=== PATIENT | male | born 1960 | race Caucasian/White ===

== ENCOUNTER 2017-11-04 15:59 | Emergency (ER) | payer MEDICAID ==
[~2017-11-04] VITALS: Ht 170.2 cm; Wt 95.1 kg
[~2017-11-04 15:59] MED LIST: GABA-827 PO
[2017-11-04] MEDS ORDERED: ASPIRIN 81 MG TABLET CHEW PO ONE (16:30)
[2017-11-04] MEDS ORDERED: SODIUM CHLORIDE FLUSH 10ML SYR IVF ONE ×2 (16:30→17:00)
[2017-11-04] MEDS ORDERED: ALBUTEROL/IPRATROPIUM 2.5MG/0.5MG, 3 ML NPPB SCH (17:00)
[2017-11-04 17:10] LABS: BASOPHILS # (AUTO) 0.04 x10^3/uL (0-0.1); BASOPHILS % (AUTO) 0 % (0-1); EOSINOPHILS # (AUTO) 0.18 x10^3/uL (0-0.4); EOSINOPHILS % (AUTO) 2 % (1-7); LYMPHOCYTES # (AUTO) 1.84 x10^3/uL (1-3.4); LYMPHOCYTES % (AUTO) 21 % (22-44); MD NO; MEAN CORPUSCULAR HEMOGLOBIN 29.6 pg (27.5-34.5); MEAN CORPUSCULAR HGB CONC 33.7 g/dL (33.2-36.2); MEAN CORPUSCULAR VOLUME 87.9 fL (81-97); MEAN PLATELET VOLUME 9.1 fL (7.4-10.4); MONOCYTES # (AUTO) 0.65 x10^3/uL (0.2-0.8); MONOCYTES % (AUTO) 7 % (2-9); NEUTROPHILS # (AUTO) 6.04 x10^3/uL (1.8-6.8); NEUTROPHILS % (AUTO) 69 % (42-75); PLATELET COUNT 235 x10^3/uL (130-400); RED BLOOD COUNT 5.75 x10^6/uL (4.38-5.82); RED CELL DISTRIBUTION WIDTH 14.6 % (9.4-14.8)
[2017-11-04 17:19] LABS: ALBUMIN 3.5 g/dL (3.4-5.0); ANION GAP 7 mmol/L (5-15); CALCIUM 8.1 mg/dL (8.5-10.1); CHLORIDE 110 mmol/L (98-107)
[2017-11-04 17:24] LABS: ALKALINE PHOSPHATASE 85 U/L (45-117); BILIRUBIN,TOTAL 0.8 mg/dL (0.2-1.0); CREATININE 0.89 mg/dL (0.7-1.3); TOTAL PROTEIN 7.2 g/dL (6.4-8.2); TROPONIN I 0.093 ng/mL (0.000-0.045)
[2017-11-04 17:25] LABS: ALANINE AMINOTRANSFERASE 59 U/L (12-78)
[2017-11-04] MEDS ORDERED: hydrALAzine 20 MG/ML, 1ML IV ONE (18:00)
[2017-11-04] MEDS ORDERED: hydrALAzine 20 MG/ML, 1ML ONE (19:13)
[2017-11-04 19:50] LABS: AMPHETAMINE SCREEN, URINE Positive (Negative); BARBITURATE SCREEN, URINE Negative (Negative); BENZODIAZEPINE SCREEN, URINE Negative (Negative); CANNABINOID SCREEN, URINE Negative (Negative); COCAINE SCREEN, URINE Negative (Negative); METHADONE SCREEN, URINE Negative (Negative); OPIATE SCREEN, URINE Negative (Negative)
[2017-11-04] MEDS ORDERED: SODIUM CHLORIDE 0.9% 1,000 ML IV SCH (20:19)
[2017-11-04] MEDS ORDERED: ACETAMINOPHEN 325 MG TABLET PO PRN (20:30)
[2017-11-04] MEDS ORDERED: LISINOPRIL 10 MG TABLET PO SCH (20:30)
[2017-11-04] MEDS ORDERED: POLYETHYLENE GLYCOL 17 GM PACKET PO PRN (20:30)
[2017-11-04] MEDS ORDERED: BISACODYL 10 MG SUPP PR PRN (20:30)
[2017-11-04] MEDS ORDERED: hydrALAzine 20 MG/ML, 1ML IVPush PRN (20:30)
[2017-11-04] MEDS ORDERED: OXYcodone IR 5MG TABLET PO PRN (20:30)
[2017-11-04] MEDS ORDERED: ONDANSETRON 2MG/ML, 2ML IVPush PRN (20:30)
[2017-11-04] MEDS ORDERED: NITROGLYCERIN 0.4 MG BOTTLE (25 TABS) SL PRN (20:30)
[2017-11-04] MEDS ORDERED: morphine SULFATE 10 MG/ML, 1ML IVPush PRN (20:30)
[2017-11-04] MEDS ORDERED: ENOXAPARIN 40 MG/0.4 ML SQ SCH (20:30)
[2017-11-04] MEDS ORDERED: ENALAPRILAT 1.25 MG/ML, 2ML IVPush PRN (20:30)
[2017-11-04] MEDS ORDERED: FUROSEMIDE 20 MG/2 ML IV ONE (20:30)
[2017-11-04 20:58] VITALS: BP 138/88
[2017-11-04 21:05] LABS: FREE T4 (FREE THYROXINE) 1.19 ng/dL (0.76-1.46); THYROID STIMULATING HORMONE 1.48 mIU/L (0.358-3.740)
[2017-11-04 21:07] LABS: HEMOGLOBIN A1C 6.3 % (4.2-6.3)
[2017-11-05] MEDS ORDERED: SENNA/DOCUSATE TABLET PO SCH (09:00)
== END 2017-11-04 21:18 | disposition left against medical advice (07) ==
LOC: ED 18:26 → EDIP 20:19 → UNDOADMIN 20:19 → ED 21:18
DX: R07.2 Precordial pain (principal); I10 Essential (primary) hypertension; G43.909 Migraine, unspecified, not intractable, without status migrainosus; J43.9 Emphysema, unspecified; Z72.9 Problem related to lifestyle, unspecified; Z87.891 Personal history of nicotine dependence; E27.9 Disorder of adrenal gland, unspecified; E78.5 Hyperlipidemia, unspecified; R79.89 Other specified abnormal findings of blood chemistry; Z79.899 Other long term (current) drug therapy
CPT/HCPCS: 36415; 36600; 71046; 80053; 80307; 82803; 83036; 83735; 83880; 84439; 84443; 84484; 85025; 85379; 87040; 93005; 96374; 99291; J0360

== ENCOUNTER 2017-12-25 15:00 | Emergency (ER) | payer MEDICAID ==
[~2017-12-25] VITALS: Ht 172.7 cm; Wt 95.5 kg
[2017-12-25] MEDS ORDERED: SODIUM CHLORIDE FLUSH 10ML SYR IVF ONE (15:30)
[2017-12-25 15:35] LABS: BASOPHILS # (AUTO) 0.03 x10^3/uL (0-0.1); BASOPHILS % (AUTO) 0 % (0-1); EOSINOPHILS # (AUTO) 0.24 x10^3/uL (0-0.4); EOSINOPHILS % (AUTO) 2 % (1-7); LYMPHOCYTES # (AUTO) 2.31 x10^3/uL (1-3.4); LYMPHOCYTES % (AUTO) 20 % (22-44); MD NO; MEAN CORPUSCULAR HEMOGLOBIN 29.3 pg (27.5-34.5); MEAN CORPUSCULAR HGB CONC 33.1 g/dL (33.2-36.2); MEAN CORPUSCULAR VOLUME 88.6 fL (81-97); MEAN PLATELET VOLUME 9.1 fL (7.4-10.4); MONOCYTES # (AUTO) 0.63 x10^3/uL (0.2-0.8); MONOCYTES % (AUTO) 6 % (2-9); NEUTROPHILS # (AUTO) 8.16 x10^3/uL (1.8-6.8); NEUTROPHILS % (AUTO) 72 % (42-75); PLATELET COUNT 254 x10^3/uL (130-400); RED BLOOD COUNT 6.13 x10^6/uL (4.38-5.82); RED CELL DISTRIBUTION WIDTH 14.5 % (9.4-14.8)
[2017-12-25 15:49] LABS: ALANINE AMINOTRANSFERASE 67 U/L (12-78); ALBUMIN 3.4 g/dL (3.4-5.0); ANION GAP 8 mmol/L (5-15); CALCIUM 8.5 mg/dL (8.5-10.1); CHLORIDE 111 mmol/L (98-107); CREATININE 1.17 mg/dL (0.7-1.3)
[2017-12-25 15:53] LABS: ALKALINE PHOSPHATASE 83 U/L (45-117); BILIRUBIN,TOTAL 0.6 mg/dL (0.2-1.0); TOTAL PROTEIN 7.5 g/dL (6.4-8.2)
[2017-12-25 16:10] LABS: PROTHROMBIN TIME 9.9 Seconds (9.6-11.5)
[2017-12-25 16:11] LABS: INTERNATIONAL NORMALIZED RATIO 0.96 (0.93-1.1)
[2017-12-25] MEDS ORDERED: LIDOCAINE-MPF 1%, 5ML ONE (16:11)
[2017-12-25 16:31] LABS: MICROSCOPIC AUTO
[2017-12-25 16:34] LABS: CULTURE INDICATED? YES
[2017-12-25 17:18] VITALS: BP 118/90
== END 2017-12-25 18:16 | disposition home or self-care (01) ==
LOC: ED 16:03
DX: R06.00 Dyspnea, unspecified (principal); R09.02 Hypoxemia; R74.0 Nonspecific elevation of levels of transaminase and lactic acid dehydrogenase [LDH]; I10 Essential (primary) hypertension; G43.909 Migraine, unspecified, not intractable, without status migrainosus; Z87.891 Personal history of nicotine dependence
CPT/HCPCS: 36415; 49083; 71045; 80053; 81001; 83690; 83880; 85025; 85610; 85730; 87086; 93005; 99285

== ENCOUNTER 2018-02-21 08:00 | Emergency (ER) | payer MEDICAID ==
[~2018-02-21] VITALS: Ht 170.2 cm; Wt 95.3 kg
[2018-02-21] MEDS ORDERED: SODIUM CHLORIDE FLUSH 10ML SYR IVF ONE (08:30)
[2018-02-21] MEDS ORDERED: ALBUTEROL/IPRATROPIUM 2.5MG/0.5MG, 3 ML NPPB ONE (08:30)
[2018-02-21] MEDS ORDERED: ASPIRIN 81 MG TABLET CHEW PO ONE (08:30)
[2018-02-21 08:42] LABS: BASOPHILS # (AUTO) 0.07 x10^3/uL (0-0.1); BASOPHILS % (AUTO) 1 % (0-1); EOSINOPHILS # (AUTO) 0.23 x10^3/uL (0-0.4); EOSINOPHILS % (AUTO) 3 % (1-7); LYMPHOCYTES # (AUTO) 2.44 x10^3/uL (1-3.4); LYMPHOCYTES % (AUTO) 27 % (22-44); MD NO; MEAN CORPUSCULAR HEMOGLOBIN 30.2 pg (27.5-34.5); MEAN CORPUSCULAR HGB CONC 33.8 g/dL (33.2-36.2); MEAN CORPUSCULAR VOLUME 89.3 fL (81-97); MEAN PLATELET VOLUME 9.1 fL (7.4-10.4); MONOCYTES # (AUTO) 0.62 x10^3/uL (0.2-0.8); MONOCYTES % (AUTO) 7 % (2-9); NEUTROPHILS % (AUTO) 63 % (42-75); PLATELET COUNT 233 x10^3/uL (130-400); RED BLOOD COUNT 6.05 x10^6/uL (4.38-5.82); RED CELL DISTRIBUTION WIDTH 14.3 % (9.4-14.8)
[2018-02-21] MEDS ORDERED: ASPIRIN 81 MG TABLET CHEW ONE (08:48)
[2018-02-21 08:56] LABS: ALBUMIN 3.8 g/dL (3.4-5.0); ANION GAP 4 mmol/L (5-15); CALCIUM 8.6 mg/dL (8.5-10.1); CHLORIDE 107 mmol/L (98-107)
[2018-02-21] MEDS ORDERED: ALBUTEROL/IPRATROPIUM 2.5MG/0.5MG, 3 ML ONE (08:59)
[2018-02-21 09:01] LABS: ALANINE AMINOTRANSFERASE 72 U/L (12-78); ALKALINE PHOSPHATASE 68 U/L (45-117); BILIRUBIN,TOTAL 0.6 mg/dL (0.2-1.0); CREATININE 1.09 mg/dL (0.7-1.3); TOTAL PROTEIN 7.7 g/dL (6.4-8.2); TROPONIN I 0.053 ng/mL (0.000-0.045)
[2018-02-21] MEDS ORDERED: METOPROLOL 1 MG/ML, 5ML IVPush PRN (09:30)
[2018-02-21] MEDS ORDERED: METOPROLOL 1 MG/ML, 5ML ONE (09:31)
[2018-02-21] MEDS ORDERED: POTA2TAB8 PO (09:37)
[2018-02-21] MEDS ORDERED: LOSA1TAB19 PO (09:38)
[2018-02-21] MEDS ORDERED: METO25TA35 PO (09:38)
[2018-02-21] MEDS ORDERED: ASPI1TAB58 PO (09:39)
[2018-02-21] MEDS ORDERED: IPRA3AMP INH (09:39)
[2018-02-21 10:57] VITALS: BP 126/91
== END 2018-02-21 11:09 | disposition left against medical advice (07) ==
LOC: ED 09:48 → EDIP 09:57 → UNDOADMOB 09:57 → ED 11:09 → 5SO 11:09 → EDIP 11:09 → UNDODISOB 12:15
DX: R07.2 Precordial pain (principal); J44.9 Chronic obstructive pulmonary disease, unspecified; I10 Essential (primary) hypertension; G43.909 Migraine, unspecified, not intractable, without status migrainosus; R06.00 Dyspnea, unspecified; Z87.891 Personal history of nicotine dependence
CPT/HCPCS: 36415; 71045; 80053; 83880; 84484; 85025; 93005; 94640; 96374; 99285; G0378; J7512; J7620

== ENCOUNTER 2018-03-06 15:26 | Inpatient (IN) | payer MEDICAID ==
[~2018-03-06] VITALS: Ht 172.7 cm; Wt 94.6 kg
[~2018-03-06 15:26] MED LIST changes: +ASPI1TAB58 PO; +IPRA3AMP INH; +LOSA1TAB19 PO; +METO25TA35 PO; +POTA2TAB8 PO
[2018-03-06] MEDS ORDERED: [UNRECOGNIZED DRUG - OTHER] INH (16:05)
[2018-03-06 16:10] LABS: BASOPHILS # (AUTO) 0.07 x10^3/uL (0-0.1); BASOPHILS % (AUTO) 1 % (0-1); EOSINOPHILS # (AUTO) 0.21 x10^3/uL (0-0.4); EOSINOPHILS % (AUTO) 2 % (1-7); LYMPHOCYTES # (AUTO) 2.38 x10^3/uL (1-3.4); LYMPHOCYTES % (AUTO) 23 % (22-44); MD NO; MEAN CORPUSCULAR HEMOGLOBIN 29.3 pg (27.5-34.5); MEAN CORPUSCULAR HGB CONC 33.1 g/dL (33.2-36.2); MEAN CORPUSCULAR VOLUME 88.8 fL (81-97); MEAN PLATELET VOLUME 9.1 fL (7.4-10.4); MONOCYTES # (AUTO) 0.71 x10^3/uL (0.2-0.8); MONOCYTES % (AUTO) 7 % (2-9); NEUTROPHILS # (AUTO) 6.91 x10^3/uL (1.8-6.8); NEUTROPHILS % (AUTO) 67 % (42-75); PLATELET COUNT 232 x10^3/uL (130-400); RED BLOOD COUNT 5.94 x10^6/uL (4.38-5.82); RED CELL DISTRIBUTION WIDTH 14.5 % (9.4-14.8)
[2018-03-06 16:20] LABS: ALBUMIN 3.6 g/dL (3.4-5.0); ANION GAP 5 mmol/L (5-15); CALCIUM 8.5 mg/dL (8.5-10.1); CHLORIDE 113 mmol/L (98-107); CREATININE 1.07 mg/dL (0.7-1.3)
[2018-03-06 16:24] LABS: TROPONIN I 0.034 ng/mL (0.000-0.045)
[2018-03-06] MEDS ORDERED: ASPIRIN 81 MG TABLET CHEW ONE (17:14)
[2018-03-06] MEDS: SODIUM CHLORIDE 0.9% 1,000 ML IV SCH ×2 (17:28→19:52)
[2018-03-06] MEDS ORDERED: ASPIRIN 81 MG TABLET CHEW PO ONE (17:30)
[2018-03-06] MEDS ORDERED: ENOXAPARIN 40 MG/0.4 ML SQ SCH (18:00)
[2018-03-06] MEDS ORDERED: AZITHROMYCIN 500 MG in SODIUM CHLORIDE 0.9% 250 ML IV SCH (18:00)
[2018-03-06] MEDS ORDERED: [UNRECOGNIZED DRUG - REMARK] MC SCH (18:00)
[2018-03-06] MEDS ORDERED: ONDANSETRON 2MG/ML, 2ML IVPush PRN (18:00)
[2018-03-06] MEDS ORDERED: CEFTRIAXONE PMX 2GM/50ML 50 ML IV SCH (18:00)
[2018-03-06] MEDS ORDERED: HYDROcodone/APAP 5/325 TABLET PO PRN (18:00)
[2018-03-06] MEDS ORDERED: morphine SULFATE 10 MG/ML, 1ML IVPush PRN (18:00)
[2018-03-06] MEDS ORDERED: OMNIPAQUE 350 MG/ML, 100ML BOTTLE ONE (18:06)
[2018-03-06 18:20] LABS: FREE T4 (FREE THYROXINE) 1.25 ng/dL (0.76-1.46); THYROID STIMULATING HORMONE 1.77 mIU/L (0.358-3.740)
[2018-03-06 18:35] VITALS: BP 131/92
[2018-03-06 20:00] VITALS: BP 121/80
[2018-03-06] MEDS: methylPREDNISolone SOD SUCC 40 MG/ML IVPush SCH (20:09)
[2018-03-06] MEDS ORDERED: ALBUTEROL/IPRATROPIUM 2.5MG/0.5MG, 3 ML NPPB PRN (20:30)
[2018-03-06] MEDS ORDERED: METOPROLOL TARTRATE 50 MG TABLET PO SCH (21:00)
[2018-03-06 21:22] LABS: AMPHETAMINE SCREEN, URINE Positive (Negative); BARBITURATE SCREEN, URINE Negative (Negative); BENZODIAZEPINE SCREEN, URINE Negative (Negative); CANNABINOID SCREEN, URINE Negative (Negative); COCAINE SCREEN, URINE Negative (Negative); METHADONE SCREEN, URINE Negative (Negative); OPIATE SCREEN, URINE Negative (Negative)
[2018-03-06 22:45] LABS: TROPONIN I 0.035 ng/mL (0.000-0.045)
[2018-03-07 02:12] VITALS: BP 120/83
[2018-03-07] MEDS: methylPREDNISolone SOD SUCC 40 MG/ML IVPush SCH (02:13)
[2018-03-07 04:15] LABS: CHOLESTEROL, TOTAL 154 mg/dL (140-239); TRIGLYCERIDES 122 mg/dL (50-200); VLDL CHOLESTEROL 24 mg/dL (0-25)
[2018-03-07 04:18] LABS: CHOL/HDL RATIO 3.9; HDL CHOL % 25 % (26-37); HDL CHOLESTEROL (DIRECT) 39 mg/dL (40-60); LDL CHOLESTEROL,CALCULATED 91 mg/dL (54-169); LDL/HDL RATIO 2.3 (0.5-3.0); TROPONIN I 0.027 ng/mL (0.000-0.045)
[2018-03-07] MEDS ORDERED: METO-282 PO (05:06)
[2018-03-07 07:04] VITALS: BP 125/83
[2018-03-07] MEDS ORDERED: PANTOPROZOLE 40MG TABLET PO SCH (07:30)
== END 2018-03-07 08:40 | disposition left against medical advice (07) | DRG 192 ==
LOC: ED 15:45 → SUATTDRO 17:08 → EDIP 17:44 → 5SO 18:27
PROVIDERS: ADMIT Internal Medicine; ATTEND Internal Medicine
DX: J44.0 Chronic obstructive pulmonary disease with (acute) lower respiratory infection (principal); J44.1 Chronic obstructive pulmonary disease with (acute) exacerbation; J20.9 Acute bronchitis, unspecified; E78.5 Hyperlipidemia, unspecified; I10 Essential (primary) hypertension; Z79.82 Long term (current) use of aspirin; Z80.42 Family history of malignant neoplasm of prostate; Z80.8 Family history of malignant neoplasm of other organs or systems; Z87.891 Personal history of nicotine dependence; Z91.14 Patient's other noncompliance with medication regimen; R07.89 Other chest pain; Z91.030 Bee allergy status; Z91.018 Allergy to other foods; Z88.8 Allergy status to other drugs, medicaments and biological substances
CPT/HCPCS: 36415; 71045; 71275; 80048; 80061; 80307; 82040; 84439; 84443; 84484; 85025; 93005; 93306; 99285; J0456; J0696; J1650; Q9967; J2920; J7030; J7050

== ENCOUNTER 2018-04-11 16:56 | Emergency (ER) | payer MEDICAID ==
[~2018-04-11] VITALS: Ht 170.2 cm; Wt 96.9 kg
[~2018-04-11 16:56] MED LIST changes: -IPRA3AMP INH; +IPRA3AMP30 INH; +METO-282 PO; +[UNRECOGNIZED DRUG - OTHER] INH
[2018-04-11] MEDS ORDERED: MAALOX/HYOSCYAMINE/LIDOCAINE 45 ML BTL PO ONE (17:30)
[2018-04-11] MEDS ORDERED: ASPIRIN 81 MG TABLET CHEW PO ONE (17:30)
[2018-04-11] MEDS ORDERED: SODIUM CHLORIDE FLUSH 10ML SYR IVF ONE (17:30)
[2018-04-11] MEDS ORDERED: MAALOX/HYOSCYAMINE/LIDOCAINE 45 ML BTL ONE (17:32)
[2018-04-11] MEDS ORDERED: ASPIRIN 81 MG TABLET CHEW ONE (17:32)
[2018-04-11 17:37] LABS: BASOPHILS # (AUTO) 0.04 x10^3/uL (0-0.1); BASOPHILS % (AUTO) 0 % (0-1); EOSINOPHILS # (AUTO) 0.26 x10^3/uL (0-0.4); EOSINOPHILS % (AUTO) 3 % (1-7); LYMPHOCYTES # (AUTO) 2.37 x10^3/uL (1-3.4); LYMPHOCYTES % (AUTO) 27 % (22-44); MD NO; MEAN CORPUSCULAR HEMOGLOBIN 30.6 pg (27.5-34.5); MEAN CORPUSCULAR HGB CONC 33.8 g/dL (33.2-36.2); MEAN CORPUSCULAR VOLUME 90.3 fL (81-97); MEAN PLATELET VOLUME 9.2 fL (7.4-10.4); MONOCYTES # (AUTO) 0.68 x10^3/uL (0.2-0.8); MONOCYTES % (AUTO) 8 % (2-9); NEUTROPHILS # (AUTO) 5.36 x10^3/uL (1.8-6.8); NEUTROPHILS % (AUTO) 62 % (42-75); PLATELET COUNT 228 x10^3/uL (130-400); RED BLOOD COUNT 5.73 x10^6/uL (4.38-5.82); RED CELL DISTRIBUTION WIDTH 14.1 % (9.4-14.8)
[2018-04-11 17:43] LABS: ALANINE AMINOTRANSFERASE 55 U/L (12-78); ALBUMIN 3.5 g/dL (3.4-5.0); ANION GAP 8 mmol/L (5-15); CALCIUM 7.9 mg/dL (8.5-10.1); CHLORIDE 111 mmol/L (98-107); CREATININE 0.94 mg/dL (0.7-1.3)
[2018-04-11 17:48] LABS: ALKALINE PHOSPHATASE 71 U/L (45-117); BILIRUBIN,TOTAL 0.3 mg/dL (0.2-1.0); TROPONIN I 0.018 ng/mL (0.000-0.045)
[2018-04-11] MEDS ORDERED: ALBUTEROL/IPRATROPIUM 2.5MG/0.5MG, 3 ML ONE (17:50)
[2018-04-11] MEDS ORDERED: ALBUTEROL/IPRATROPIUM 2.5MG/0.5MG, 3 ML NPPB ONE (18:00)
[2018-04-11 19:08] VITALS: BP 114/76
== END 2018-04-11 19:38 | disposition home or self-care (01) ==
LOC: ED 18:29
DX: R06.00 Dyspnea, unspecified (principal); G43.909 Migraine, unspecified, not intractable, without status migrainosus; E78.5 Hyperlipidemia, unspecified; Z87.891 Personal history of nicotine dependence
CPT/HCPCS: 36415; 71045; 80053; 83880; 84484; 85025; 93005; 94640; 99285; J7620

== ENCOUNTER 2018-04-21 04:54 | Inpatient (IN) | payer MEDICAID ==
[~2018-04-21] VITALS: Ht 172.7 cm; Wt 100.0 kg
[2018-04-21] MEDS ORDERED: SODIUM CHLORIDE 0.9% 1,000 ML IV ONE (05:11)
[2018-04-21 05:30] LABS: BASOPHILS # (AUTO) 0.02 x10^3/uL (0-0.1); BASOPHILS % (AUTO) 0 % (0-1); EOSINOPHILS # (AUTO) 0.25 x10^3/uL (0-0.4); EOSINOPHILS % (AUTO) 2 % (1-7); LYMPHOCYTES # (AUTO) 1.81 x10^3/uL (1-3.4); LYMPHOCYTES % (AUTO) 11 % (22-44); MD NO; MEAN CORPUSCULAR HGB CONC 33.6 g/dL (33.2-36.2); MEAN CORPUSCULAR VOLUME 89.4 fL (81-97); MEAN PLATELET VOLUME 8.6 fL (7.4-10.4); MONOCYTES # (AUTO) 0.79 x10^3/uL (0.2-0.8); MONOCYTES % (AUTO) 5 % (2-9); NEUTROPHILS # (AUTO) 13.61 x10^3/uL (1.8-6.8); NEUTROPHILS % (AUTO) 83 % (42-75); PLATELET COUNT 216 x10^3/uL (130-400); RED BLOOD COUNT 5.86 x10^6/uL (4.38-5.82); RED CELL DISTRIBUTION WIDTH 14.1 % (9.4-14.8)
[2018-04-21] MEDS ORDERED: SODIUM CHLORIDE FLUSH 10ML SYR IVF ONE (05:30)
[2018-04-21 05:40] LABS: PROTHROMBIN TIME 10.3 Seconds (9.6-11.5)
[2018-04-21 05:41] LABS: ALANINE AMINOTRANSFERASE 53 U/L (12-78); ALBUMIN 3.6 g/dL (3.4-5.0); ANION GAP 8 mmol/L (5-15); CALCIUM 8.5 mg/dL (8.5-10.1); CHLORIDE 105 mmol/L (98-107); CREATININE 1.32 mg/dL (0.7-1.3)
[2018-04-21 05:43] LABS: ALKALINE PHOSPHATASE 75 U/L (45-117); BILIRUBIN,TOTAL 1.5 mg/dL (0.2-1.0); TOTAL PROTEIN 7.5 g/dL (6.4-8.2)
[2018-04-21] MEDS ORDERED: OMNIPAQUE 350 MG/ML, 100ML BOTTLE ONE (06:17)
[2018-04-21] MEDS ORDERED: METRONIDAZOLE PMX 500MG/100ML 0 ML ONE (06:53)
[2018-04-21] MEDS ORDERED: METRONIDAZOLE PMX 500MG/100ML 100 ML ONE (06:54)
[2018-04-21] MEDS ORDERED: CIPROFLOXACIN/PMX 400MG/200ML 200 ML ONE (06:54)
[2018-04-21] MEDS ORDERED: METRONIDAZOLE PMX 500MG/100ML 100 ML IVPB ONE (07:00)
[2018-04-21] MEDS ORDERED: CIPROFLOXACIN/PMX 400MG/200ML 100 ML IVPB ONE (07:00)
[2018-04-21] MEDS ORDERED: ASA/APAP/ CAFFEINE TABLET PO SCH (07:30)
[2018-04-21 08:22] LABS: MICROSCOPIC NOT IND
[2018-04-21 08:24] LABS: CULTURE INDICATED? NO
[2018-04-21] MEDS ORDERED: ONDANSETRON 2MG/ML, 2ML ONE (08:29)
[2018-04-21] MEDS ORDERED: ONDANSETRON 2MG/ML, 2ML IVPush ONE (08:30)
[2018-04-21 08:31] VITALS: BP 127/75
[2018-04-21] MEDS ORDERED: SODIUM CHLORIDE FLUSH 10ML SYR IVF PRN (09:00)
[2018-04-21] MEDS ORDERED: [UNRECOGNIZED DRUG - OTHER] INH SCH (09:00)
[2018-04-21] MEDS ORDERED: METOPROLOL SUCCINATE 25 MG TAB.ER.24H PO SCH (09:00)
[2018-04-21] MEDS ORDERED: POTASSIUM GLUCONATE PO SCH (09:00)
[2018-04-21] MEDS ORDERED: LOSARTAN 50MG TABLET PO SCH (09:00)
[2018-04-22] MEDS ORDERED: HYDROCHLOROTHIAZIDE 12.5 MG CAPSULE PO SCH (09:00)
== END 2018-04-21 13:49 | disposition left against medical advice (07) | DRG 392 ==
LOC: SUATTDRO 06:59 → ED 08:18 → EDIP 08:49 → 3NE 09:27
PROVIDERS: ADMIT Hospitalist; ATTEND Hospitalist
DX: A09 Infectious gastroenteritis and colitis, unspecified (principal); J44.9 Chronic obstructive pulmonary disease, unspecified; I10 Essential (primary) hypertension; E86.0 Dehydration; E78.5 Hyperlipidemia, unspecified; Z80.9 Family history of malignant neoplasm, unspecified; Z87.891 Personal history of nicotine dependence; F15.90 Other stimulant use, unspecified, uncomplicated; Z88.6 Allergy status to analgesic agent; Z91.030 Bee allergy status; Z91.018 Allergy to other foods; Z53.21 Procedure and treatment not carried out due to patient leaving prior to being seen by health care provider
CPT/HCPCS: 36415; 74177; 80053; 81003; 83605; 83690; 85025; 85610; 85730; 86850; 86900; 87040; 93005; 96365; 96367; 96375; 99285; J0744; J2405; Q9967; J7030

== ENCOUNTER 2018-07-02 18:32 | Emergency (ER) | payer MEDICAID, OTHER ==
[~2018-07-02] VITALS: Ht 170.2 cm; Wt 214.0 kg
[2018-07-02] MEDS ORDERED: ASPIRIN 81 MG TABLET CHEW ONE (18:58)
[2018-07-02] MEDS ORDERED: SODIUM CHLORIDE FLUSH 10ML SYR IVF ONE (19:00)
[2018-07-02] MEDS ORDERED: ASPIRIN 81 MG TABLET CHEW PO ONE (19:00)
[2018-07-02 19:31] LABS: TROPONIN I 0.034 ng/mL (0.000-0.045)
[2018-07-02 19:54] LABS: BASOPHILS # (AUTO) 0.04 x10^3/uL (0-0.1); BASOPHILS % (AUTO) 0 % (0-1); EOSINOPHILS # (AUTO) 0.21 x10^3/uL (0-0.4); EOSINOPHILS % (AUTO) 2 % (1-7); LYMPHOCYTES # (AUTO) 1.97 x10^3/uL (1-3.4); LYMPHOCYTES % (AUTO) 20 % (22-44); MD NO; MEAN CORPUSCULAR HEMOGLOBIN 30.5 pg (27.5-34.5); MEAN CORPUSCULAR HGB CONC 33.7 g/dL (33.2-36.2); MEAN CORPUSCULAR VOLUME 90.5 fL (81-97); MEAN PLATELET VOLUME 8.9 fL (7.4-10.4); MONOCYTES # (AUTO) 0.65 x10^3/uL (0.2-0.8); MONOCYTES % (AUTO) 7 % (2-9); NEUTROPHILS # (AUTO) 7.01 x10^3/uL (1.8-6.8); NEUTROPHILS % (AUTO) 71 % (42-75); PLATELET COUNT 236 x10^3/uL (130-400); RED BLOOD COUNT 5.43 x10^6/uL (4.38-5.82); RED CELL DISTRIBUTION WIDTH 14.1 % (9.4-14.8)
[2018-07-02 20:02] LABS: D-DIMER 0.2 ug/mlFEU (0.00-0.52); PROTHROMBIN TIME 10.4 Seconds (9.6-11.5)
[2018-07-02 20:33] LABS: ALBUMIN 3.8 g/dL (3.4-5.0); ANION GAP 11 mmol/L (5-15); CALCIUM 8.9 mg/dL (8.5-10.1); CHLORIDE 108 mmol/L (98-107)
[2018-07-02 20:36] LABS: ALANINE AMINOTRANSFERASE 102 U/L (12-78); ALKALINE PHOSPHATASE 64 U/L (45-117); BILIRUBIN,TOTAL 0.3 mg/dL (0.2-1.0); CREATININE 1.29 mg/dL (0.7-1.3); TOTAL PROTEIN 7.5 g/dL (6.4-8.2)
[2018-07-02] MEDS ORDERED: TAMS0.4C2 PO (22:21)
[2018-07-02] MEDS ORDERED: BUPROPION HCL PO (22:21)
[2018-07-02] MEDS ORDERED: METO-93 PO (22:21)
[2018-07-02] MEDS ORDERED: LOSA1TAB22 PO (22:21)
[2018-07-02] MEDS ORDERED: ATROVENT INH (22:21)
[2018-07-02] MEDS ORDERED: FLUT200B INH (22:21)
[2018-07-02] MEDS ORDERED: ASPI-515 PO (22:21)
[2018-07-02] MEDS ORDERED: CALC-112 PO (22:21)
[2018-07-02] MEDS ORDERED: ATOR40TA78 PO (22:21)
[2018-07-02] MEDS ORDERED: CEFTRIAXONE 1,000 MG in SODIUM CHLORIDE 0.9% 50 ML IVPB ONE (22:30)
[2018-07-02] MEDS ORDERED: AZITHROMYCIN 500 MG in SODIUM CHLORIDE 0.9% 250 ML IVPB ONE (22:30)
[2018-07-02 22:53] VITALS: BP 114/58
[2018-07-02] MEDS ORDERED: morphine SULFATE 10 MG/ML, 1ML IVPush PRN (23:00)
[2018-07-02] MEDS ORDERED: NITROGLYCERIN 0.4 MG/SPRAY SL PRN (23:00)
[2018-07-02] MEDS ORDERED: ENOXAPARIN 40 MG/0.4 ML SQ SCH (23:00)
[2018-07-02] MEDS ORDERED: DOCUSATE 100 MG CAPSULE PO PRN (23:00)
[2018-07-02] MEDS ORDERED: NITROGLYCERIN 0.4 MG BOTTLE (25 TABS) SL PRN (23:00)
[2018-07-02] MEDS ORDERED: ACETAMINOPHEN 325 MG TABLET PO PRN (23:00)
[2018-07-02] MEDS ORDERED: ONDANSETRON 2MG/ML, 2ML IVPush PRN (23:00)
[2018-07-02] MEDS ORDERED: POLYETHYLENE GLYCOL 17 GM PACKET PO PRN (23:00)
[2018-07-02] MEDS ORDERED: SODIUM CHLORIDE FLUSH 10ML SYR IVF PRN (23:00)
[2018-07-03] MEDS ORDERED: TEMPLATE NON-FORMULARY MED. (Losartan/Hydrochlorothiazide** (Losartan-Hctz 100-25 Mg Tab PO SCH (09:00)
[2018-07-03] MEDS ORDERED: BUPROPION HCL 150 MG PO SCH (09:00)
[2018-07-03] MEDS ORDERED: SODIUM CHLORIDE FLUSH 10ML SYR IVF SCH (09:00)
[2018-07-03] MEDS ORDERED: ATROVENT INH SCH (09:00)
[2018-07-03] MEDS ORDERED: TAMSULOSIN 0.4 MG CAP.ER.24H PO SCH (09:00)
[2018-07-03] MEDS ORDERED: ASPIRIN 81 MG TABLET EC PO SCH (09:00)
[2018-07-03] MEDS ORDERED: METOPROLOL SUCCINATE 50 MG TAB.ER.24H PO SCH (09:00)
[2018-07-03] MEDS ORDERED: FLUTICASONE FUROATE 200MCG/INH INH SCH (09:00)
[2018-07-03] MEDS ORDERED: FAMOTIDINE 20 MG TABLET PO SCH (09:00)
[2018-07-03] MEDS ORDERED: ATORVASTATIN 40 MG TABLET PO SCH (21:00)
== END 2018-07-02 23:23 | disposition left against medical advice (07) ==
LOC: SUATTDRO 22:39 → ED 22:46
PROVIDERS: ATTEND Family Medicine
DX: R07.2 Precordial pain (principal); J15.9 Unspecified bacterial pneumonia; R09.02 Hypoxemia; J44.9 Chronic obstructive pulmonary disease, unspecified; G43.909 Migraine, unspecified, not intractable, without status migrainosus; Z87.891 Personal history of nicotine dependence; I10 Essential (primary) hypertension; E78.5 Hyperlipidemia, unspecified; E78.00 Pure hypercholesterolemia, unspecified
CPT/HCPCS: 71045; 80053; 83605; 83735; 83880; 84484; 85025; 85379; 85610; 87040; 93005; 99285

== ENCOUNTER 2018-09-21 16:05 | Emergency (ER) | payer MEDICAID ==
[~2018-09-21] VITALS: Ht 172.7 cm; Wt 104.5 kg
[~2018-09-21 16:05] MED LIST changes: +ASPI-515 PO; +ATOR40TA78 PO; +ATROVENT INH; +BUPROPION HCL PO; +CALC-112 PO; +FLUT200B INH; +LOSA1TAB22 PO; +METO-93 PO; +TAMS0.4C2 PO
[2018-09-21 16:07] VITALS: BP 145/81
[2018-09-21] MEDS ORDERED: LIDOCAINE 1%, 10ML INFIL ONE (16:30)
[2018-09-21] MEDS ORDERED: LIDOCAINE-MPF 1%, 5ML ONE (16:32)
--- NOTE | 2018-09-21 16:35 | NUR ---
PT ARRIVES FROM HOME WITH RED BUMP ON POSTERIOR NECK IN THE CERVICAL AREA. PT REPROTS BEEN PRESENT FOR A FEW DAYS AND VERY PAINFUL TO PT. PT IS CONCERNED DUE TO SURGICAL SCAR IS CLOSE BY AND DOES NOT WANT TO GET THAT INFECTED. PT CONNECTED TO MONITORS AND CALL LIGHT IN REACH.
--- NOTE | 2018-09-21 16:39 | NUR ---
ID AND LIDO AT BEDSIDE.
--- NOTE | 2018-09-21 16:50 | NUR ---
Patient/Caregiver given discharge instructions and they have confirmed that they understand the instructions. Patient ambulatory with steady gait.
== END 2018-09-21 17:07 | disposition home or self-care (01) ==
LOC: ED 16:53
DX: L02.11 Cutaneous abscess of neck (principal); I10 Essential (primary) hypertension; J44.9 Chronic obstructive pulmonary disease, unspecified; E78.5 Hyperlipidemia, unspecified
CPT/HCPCS: 10060; 99283